=== PATIENT | male | born 2005 | race Two or more races ===

== ENCOUNTER 2024-05-03 13:09 | Inpatient (IN) | payer OTHER ==
[~2024-05-03] VITALS: Ht 157.5 cm; Wt 50.9 kg
[2024-05-03] MEDS ORDERED: ONDANSETRON HCL 4 MG/2 ML VIAL IVP PRN (16:30)
[2024-05-03] MEDS ORDERED: OxyCODONE HCL/ACETAMINOPHEN 5-325 MG TABLET PO PRN ×2 (16:30)
[2024-05-03] MEDS ORDERED: ACETAMINOPHEN 325 MG TABLET PO PRN (16:30)
[2024-05-03] MEDS ORDERED: MAGNESIUM HYDROXIDE SUSPENSION 30 ML UDCUP PO PRN (16:30)
[2024-05-03 16:40] LABS: BASOPHILS % (AUTO) 0.2 % (0.0-2.0); EOSINOPHILS % (AUTO) 0.7 % (1.0-6.0); HEMATOCRIT 39.8 % (41-53); HEMOGLOBIN 13.7 g/dL (13.5-17.5); LYMPHOCYTES # (AUTO) 1.9 K/uL (1.0-4.8); LYMPHOCYTES % (AUTO) 19.6 % (22.0-44.0); MEAN CORPUSCULAR HEMOGLOBIN 32.2 pg (26.0-34.0); MEAN CORPUSCULAR HGB CONC 34.4 G/dL (31.0-37.0); MEAN CORPUSCULAR VOLUME 94 fL (80-100); MONOCYTES # (AUTO) 0.9 K/uL (0.1-1.0); MONOCYTES % (AUTO) 8.9 % (2.0-9.0); NEUTROPHILS # (AUTO) 6.8 K/uL (1.8-7.7); NEUTROPHILS % (AUTO) 70.6 % (40.0-70.0); PLATELET COUNT (AUTO) 200 K/uL (150-450); RED BLOOD CELL COUNT(AUTO) 4.24 MIL/uL (4.50-5.90); RED CELL DISTRIBUTION WIDTH 14.4 % (11.5-14.5); WHITE BLOOD COUNT (AUTO) 9.6 K/uL (4.5-11.0)
[2024-05-03] MEDS ORDERED: SODIUM CHLORIDE 0.9% 100 ML ONE (16:46)
[2024-05-03] MEDS ORDERED: IOHEXOL 350 MG/ML 100 ML VIAL ONE (16:46)
[2024-05-03] MEDS ORDERED: 0.9% SODIUM CHLORIDE 10 ML SYRINGE IVP ONE (16:46)
[2024-05-03] MEDS: SODIUM CHLORIDE 0.9% 1,000 ML IV ONE (16:54)
[2024-05-03 17:09] LABS: ANION GAP 13 mmol/L (8-16); CALCIUM, TOTAL 8.6 mg/dL (8.8-10.5); CARBON DIOXIDE 24 mmol/L (22-29); CHLORIDE 103 mmol/L (98-107); CREATININE 1.05 mg/dL (0.60-1.30); GLOMERULAR FILTR. RATE CALC > 60 mL/min (>60); GLUCOSE,RANDOM 113 mg/dL (70-110); POTASSIUM 4.1 mmol/L (3.5-5.1); SODIUM SERUM 140 mmol/L (136-145); UREA NITROGEN, BLOOD 7 mg/dL (7-18)
[2024-05-03] MEDS: CLINDAMYCIN 600 MG/D5% WATER 50 ML IV SCH (17:16)
[2024-05-03 17:28] LABS: ALANINE AMINOTRANSFERASE 14 U/L (12-78); ALBUMIN 3.5 g/dL (3.4-5.0); ALKALINE PHOSPHATASE 78 U/L (46-116); ASPARTATE AMINOTRANSFERASE 17 U/L (15-37); BILIRUBIN,TOTAL 0.7 mg/dL (0.1-1.0); TOTAL PROTEIN, SERUM 6.7 g/dL (6.4-8.2)
[2024-05-03 19:01] LABS: APPEARANCE,URINE CLEAR (CLEAR); BILIRUBIN,URINE NEGATIVE (NEGATIVE); COLOR,URINE LIGHT YELLOW (YELLOW); GLUCOSE, URINE (UA) NEGATIVE (NEGATIVE); KETONES,URINE NEGATIVE (NEGATIVE); LEUKOCYTE ESTERASE ,URINE NEGATIVE (NEGATIVE); NITRATE,URINE NEGATIVE (NEGATIVE); OCCULT BLOOD,URINE NEGATIVE (NEGATIVE); PROTEIN,URINE NEGATIVE (NEGATIVE); SPECIFIC GRAVITIY, URINE 1.025 (1.003-1.030); UROBILINOGEN,URINE <=1.0 mg/dL (<=1.0)
[2024-05-03] MEDS: DOCUSATE SODIUM 100 MG CAPSULE PO SCH (20:26)
[2024-05-03 23:00] VITALS: BP 106/71; PULSE 76; RESP 18; TEMP 97.6; O2SAT 100
[2024-05-04 05:03] VITALS: BP 123/64; PULSE 64; RESP 20; TEMP 97.8; O2SAT 98
[2024-05-04 05:06] VITALS: BP 123/64; PULSE 64; RESP 20; TEMP 97.8; O2SAT 98
[2024-05-04] MEDS: FAMOTIDINE 20 MG TABLET PO SCH (09:02)
[2024-05-04 10:00] VITALS: BP 111/73; PULSE 62; RESP 18; TEMP 98; O2SAT 98
[2024-05-04 21:25] VITALS: BP 110/86; PULSE 82; RESP 20; TEMP 98.4; O2SAT 98
[2024-05-05] MEDS: ZOLPIDEM TARTRATE 5 MG TABLET PO PRN (00:42)
[2024-05-05 05:46] VITALS: BP 106/76; PULSE 62; RESP 18; TEMP 97.7; O2SAT 100
[2024-05-05 08:08] VITALS: BP 117/74; PULSE 60; RESP 18; TEMP 97.5; O2SAT 95
[2024-05-05 20:01] VITALS: BP 125/77; PULSE 91; RESP 18; TEMP 98.8; O2SAT 97
[2024-05-06 05:12] VITALS: BP 116/73; PULSE 68; RESP 18; TEMP 98.2; O2SAT 97
[2024-05-06 08:50] VITALS: BP 112/70; PULSE 65; RESP 18; TEMP 98.5; O2SAT 98
[2024-05-06 16:32] VITALS: BP 123/73; PULSE 96; RESP 18; TEMP 98; O2SAT 100
[2024-05-06 19:47] VITALS: BP 125/81; PULSE 104; RESP 18; TEMP 98.3; O2SAT 100
[2024-05-07 01:07] LABS: HEPATITIS C AB (EIA) Non Reactive (Non Reactive)
[2024-05-07 05:10] VITALS: BP 112/74; PULSE 81; RESP 18; TEMP 98.5; O2SAT 98
[2024-05-07 07:44] VITALS: BP 116/79; PULSE 60; RESP 18; TEMP 97.1; O2SAT 99
[2024-05-08] VITALS: BP 98/61; PULSE 74; RESP 18; TEMP 98.1; O2SAT 99
[2024-05-08 04:31] VITALS: BP 107/59; PULSE 61; RESP 18; TEMP 97.8; O2SAT 99
[2024-05-08 06:51] LABS: BASOPHILS % (AUTO) 0.7 % (0.0-2.0); EOSINOPHILS % (AUTO) 0.9 % (1.0-6.0); HEMATOCRIT 43.9 % (41-53); HEMOGLOBIN 15.5 g/dL (13.5-17.5); LYMPHOCYTES # (AUTO) 2.8 K/uL (1.0-4.8); LYMPHOCYTES % (AUTO) 37.5 % (22.0-44.0); MEAN CORPUSCULAR HEMOGLOBIN 32.3 pg (26.0-34.0); MEAN CORPUSCULAR HGB CONC 35.4 G/dL (31.0-37.0); MEAN CORPUSCULAR VOLUME 91 fL (80-100); MONOCYTES # (AUTO) 0.5 K/uL (0.1-1.0); MONOCYTES % (AUTO) 6.6 % (2.0-9.0); NEUTROPHILS % (AUTO) 54.3 % (40.0-70.0); PLATELET COUNT (AUTO) 257 K/uL (150-450); RED BLOOD CELL COUNT(AUTO) 4.81 MIL/uL (4.50-5.90); RED CELL DISTRIBUTION WIDTH 14.4 % (11.5-14.5); WHITE BLOOD COUNT (AUTO) 7.4 K/uL (4.5-11.0)
[2024-05-08 07:19] LABS: ANION GAP 10 mmol/L (8-16); CALCIUM, TOTAL 8.6 mg/dL (8.8-10.5); CARBON DIOXIDE 27 mmol/L (22-29); CHLORIDE 101 mmol/L (98-107); CREATININE 0.84 mg/dL (0.60-1.30); GLOMERULAR FILTR. RATE CALC > 60 mL/min (>60); GLUCOSE,RANDOM 90 mg/dL (70-110); POTASSIUM 3.6 mmol/L (3.5-5.1); SODIUM SERUM 138 mmol/L (136-145); UREA NITROGEN, BLOOD 16 mg/dL (7-18)
[2024-05-08 10:37] VITALS: BP 121/76; PULSE 62; RESP 18; TEMP 98; O2SAT 99
[2024-05-08] MEDS ORDERED: CLIN300C58 PO (11:30)
[2024-05-08] MEDS ORDERED: ACET-2247 PO (11:34)
[2024-05-08] MEDS ORDERED: MAGN-169 PO (11:35)
[2024-05-08] MEDS: CLINDAMYCIN HCL 300 MG CAPSULE PO SCH (15:54)
== END 2024-05-08 17:32 | DRG 603 ==
LOC: EMS 13:09 → EDH 21:57 → 6S 22:47
PROVIDERS: ADMIT Internal Medicine; ATTEND Internal Medicine
DX: L03.211 Cellulitis of face (principal); L02.01 Cutaneous abscess of face; B95.62 Methicillin resistant Staphylococcus aureus infection as the cause of diseases classified elsewhere; Z79.899 Other long term (current) drug therapy
CPT/HCPCS: 70491; 80048; 80076; 81003; 83605; 85025; 86803; 87070; 87186; 87205; 87340; 99285; J3490; J7050